=== PATIENT | male | born 2005 | race Caucasian/White ===

== ENCOUNTER 2025-01-27 00:15 | Emergency (ER) | payer SELFPAY ==
[~2025-01-27] VITALS: Ht 175.3 cm; Wt 86.2 kg
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
[2025-01-27 00:52] VITALS: BP 145/74; PULSE 65; RESP 17; TEMP 98; O2SAT 96
== END 2025-01-27 01:07 ==
LOC: EDH 00:15
DX: Z02.89 Encounter for other administrative examinations (principal)
CPT/HCPCS: 99283